=== PATIENT | male | born 1980 | race Caucasian/White ===

== ENCOUNTER 2019-05-19 19:45 | Emergency (ER) | payer MEDICAID ==
[~2019-05-19] VITALS: Ht 177.8 cm; Wt 90.7 kg
[2019-05-19 19:58] VITALS: Ht 177.8 cm; Wt 90.7 kg
[2019-05-19 21:18] LABS: BASOPHIL % 0.3 % (0-2); PLATELET COUNT 243 x10^3mcL (130-400)
[2019-05-19 21:40] LABS: CALCIUM 9.3 mg/dL (8.5-10.1); CHLORIDE SERUM 102 mmol/L (98-107); CREATININE SERUM 1.2 mg/dL (0.7-1.3); GFR1 > 60 mL/min; GLUCOSE SERUM 160 mg/dL (74-106); POTASSIUM SERUM 3.2 mmol/L (3.5-5.1); SODIUM SERUM 139 mmol/L (136-145)
[2019-05-19 21:45] LABS: ALBUMIN 4.2 g/dL (3.4-5.0); ALKALINE PHOSPHATASE 73 U/L (46-116); ALT/SGPT 25 U/L (16-63); AST/SGOT 20 U/L (15-37); BILIRUBIN TOTAL 0.8 mg/dL (0.20-1.00); LIPASE 91 IU/L (73-393); TOTAL PROTEIN, SERUM 7.8 g/dL (6.4-8.2); URIC ACID 5.1 mg/dL (3.5-7.2)
[2019-05-19 23:31] LABS: microscopic required? NO
[2019-05-19 23:41] LABS: urine erythrocyte NEGATIVE (NEGATIVE)
[2019-05-20 00:14] LABS: AMPHETAMINE QUAL UR NONE DETECTED (See below)
[2019-05-20 01:27] VITALS: BP 103/54
== END 2019-05-20 01:27 | disposition home or self-care (01) ==
LOC: ED 19:45
PROVIDERS: Emergency Medicine
DX: R10.13 Epigastric pain (principal); R11.10 Vomiting, unspecified; F12.10 Cannabis abuse, uncomplicated; F41.9 Anxiety disorder, unspecified; F43.10 Post-traumatic stress disorder, unspecified; K21.9 Gastro-esophageal reflux disease without esophagitis
CPT/HCPCS: J1630; J2060; J3490; J7030; Q0162

== ENCOUNTER 2020-01-25 11:31 | Emergency (ER) | payer SELFPAY ==
[~2020-01-25] VITALS: Ht 177.8 cm; Wt 83.9 kg
[2020-01-25 11:35] VITALS: Ht 177.8 cm; Wt 83.9 kg
[2020-01-25 13:04] LABS: BASOPHIL % 0.3 % (0-2); PLATELET COUNT 199 x10^3mcL (130-400); RED CELL DISTRIBUTION WIDTH 13.6 % (11.5-14.5)
[2020-01-25 14:16] LABS: GFR1 > 60 mL/min
[2020-01-25 14:26] LABS: ALKALINE PHOSPHATASE 52 U/L (46-116); ALT/SGPT 29 U/L (16-63); AST/SGOT 33 U/L (15-37); CALCIUM 8.6 mg/dL (8.5-10.1); CARBON DIOXIDE 20.3 mmol/L (21-32); CHLORIDE SERUM 102 mmol/L (98-107); CREATININE SERUM 1.2 mg/dL (0.7-1.3); GLUCOSE SERUM 134 mg/dL (74-106); LIPASE 661 IU/L (73-393); SODIUM SERUM 139 mmol/L (136-145); TOTAL PROTEIN, SERUM 7.1 g/dL (6.4-8.2)
[2020-01-25 14:27] LABS: POTASSIUM SERUM 2.7 mmol/L (3.5-5.1)
[2020-01-25 16:19] VITALS: BP 120/78
== END 2020-01-25 16:41 | disposition home or self-care (01) ==
LOC: ED 11:31
PROVIDERS: Emergency Medicine
DX: E87.6 Hypokalemia (principal); R11.2 Nausea with vomiting, unspecified; K21.9 Gastro-esophageal reflux disease without esophagitis
CPT/HCPCS: J0780; J1885; J2060; J2405; J3480; J7040

== ENCOUNTER 2020-05-22 14:24 | Emergency (ER) | payer SELFPAY ==
[~2020-05-22] VITALS: Ht 172.7 cm; Wt 81.6 kg
[2020-05-22 14:28] VITALS: Ht 172.7 cm; Wt 81.6 kg
[2020-05-22 17:30] LABS: BASOPHIL % 0.1 % (0-2); PLATELET COUNT 267 x10^3mcL (130-400); RED CELL DISTRIBUTION WIDTH 13.2 % (11.5-14.5)
[2020-05-22 17:38] LABS: CALCIUM 9.7 mg/dL (8.5-10.1); CARBON DIOXIDE 22.3 mmol/L (21-32); CREATININE SERUM 1.4 mg/dL (0.7-1.3); POTASSIUM SERUM 3.2 mmol/L (3.5-5.1)
[2020-05-22 17:42] LABS: ALBUMIN 4.4 g/dL (3.4-5.0); TOTAL PROTEIN, SERUM 7.7 g/dL (6.4-8.2)
[2020-05-22 18:54] VITALS: BP 124/85
== END 2020-05-22 18:54 | disposition home or self-care (01) ==
LOC: ED 14:24
PROVIDERS: Student in an Organized Health Care Education/Training Program
DX: R11.15 Cyclical vomiting syndrome unrelated to migraine (principal); R10.13 Epigastric pain; N17.9 Acute kidney failure, unspecified; K21.9 Gastro-esophageal reflux disease without esophagitis
CPT/HCPCS: J1630; Q0162

== ENCOUNTER 2020-05-24 16:36 | Emergency (ER) | payer MEDICAID ==
[~2020-05-24] VITALS: Ht 177.8 cm; Wt 81.6 kg
[2020-05-24 16:42] VITALS: Ht 177.8 cm; Wt 81.6 kg
[2020-05-24 21:18] VITALS: BP 104/57
== END 2020-05-24 21:18 | disposition home or self-care (01) ==
LOC: ED 16:36
DX: E86.0 Dehydration (principal); R11.15 Cyclical vomiting syndrome unrelated to migraine; R10.816 Epigastric abdominal tenderness; K21.9 Gastro-esophageal reflux disease without esophagitis
CPT/HCPCS: J1630